=== PATIENT | female | born 1965 | race Caucasian/White ===

== ENCOUNTER → 2017-01-18 | Outpatient (CLI) | payer MEDICARE, MEDICAID ==
[~2017-01-18] MED LIST: ACET-2267 PO; ASP325T PO; ASP81TEC PO; CLOP75TA PO; ENAL5TAB PO; HYDR-3812 PO; HYDR-757 PO; MTP50T PO; MULT1CAP27 PO; NITR0.4T12 SL; OMEG-12 PO; OMG1KC PO; RANO10003 PO; ROSU5TAB PO; hydrocodone PO; tylenol es PO
== END ==
LOC: CARD 13:26
PROVIDERS: ATTEND Internal Medicine Cardiovascular Disease
DX: I25.10 Atherosclerotic heart disease of native coronary artery without angina pectoris (principal); I10 Essential (primary) hypertension; E78.2 Mixed hyperlipidemia; Z72.0 Tobacco use
CPT/HCPCS: 93306

== ENCOUNTER → 2017-01-21 | Outpatient (CLI) | payer MEDICARE, MEDICAID ==
[~2017-01-21] MED LIST changes: +CATHETER FLUSH 10 ML SYR IV PRN; +REGADENOSON 0.4 MG/5 ML SYR (LEXISCAN) IV ONE
[2017-01-21 09:53] VITALS: BP 107/58
[2017-01-21 09:55] VITALS: BP 122/61
[2017-01-21 09:57] VITALS: BP 109/59
--- NOTE | 2017-01-22 00:52 | STRESS TEST ---
DATE OF SERVICE: 01/21/2017 LEXISCAN MYOVIEW STRESS TEST REPORT Baseline heart rate is 73. Baseline blood pressure 108/65. Baseline EKG is sinus rhythm with no ischemic changes. SUMMARY: The patient was injected with 10.99 mCi of technetium-99 Myoview and the resting images were obtained. Then, the patient received 0.4 mg of Lexiscan followed by 30.0 mCi of technetium-99 Myoview. Throughout the test, there were no EKG changes. The resting and stress images were reviewed and compared in the horizontal long axis, vertical long axis and short axis views. Review of the images showed mild decreased uptake at basal to mid anterior septum with subtle reversibility. SSS is 7. SDS 5. TID value 1.23. On the gaited images, the left ventricle appeared to be in normal size with normal contractility. Calculated ejection fraction 67%. CONCLUSION: 1. The patient tolerated Lexiscan well. 2. Breast attenuation with mild decreased uptake at the basal to mid anterior septum with subtle reversibility. 3. Transient ischemic dilatation with TID value 1.23. 4. Normal left ventricular size with normal contractility. Calculated ejection fraction 67%. Job ID: [id number] DocumentID: [id number] Dictated Date: 01/21/2017 17:48:58 Hoist Mechanic Date: 01/21/2017 19:28:59 Dictated By: KHADIJAH FISHER MD
== END ==
LOC: CARD 07:26
PROVIDERS: ATTEND Internal Medicine Cardiovascular Disease
DX: I25.10 Atherosclerotic heart disease of native coronary artery without angina pectoris (principal); I10 Essential (primary) hypertension; E78.2 Mixed hyperlipidemia; Z72.0 Tobacco use
CPT/HCPCS: 78452; 93017

== ENCOUNTER 2017-01-25 06:37 | Day surgery (SDC) | payer MEDICARE, MEDICAID ==
[2017-01-25] VITALS (11 sets, daily range): BP systolic 90–117; BP diastolic 52–80
[~2017-01-25] VITALS: Ht 154.9 cm; Wt 51.7 kg
[~2017-01-25 06:37] MED LIST changes: -CATHETER FLUSH 10 ML SYR IV PRN; -REGADENOSON 0.4 MG/5 ML SYR (LEXISCAN) IV ONE
[2017-01-25] MEDS ORDERED: LIDOCAINE 1% INJ 50 ML (XYLOCAINE) VIAL ONE (06:46)
[2017-01-25] MEDS ORDERED: NS IV 1000 ML 1,000 ML ONE (06:46)
[2017-01-25] MEDS ORDERED: HEParin (CATH LAB) 2,000 ML IV ONE (06:46)
[2017-01-25] MEDS ORDERED: NS IV 1000 ML 1,000 ML IV SCH ×3 (06:52→10:34)
[2017-01-25 07:09] LABS: BILIRUBIN,URINE NEGATIVE (NEGATIVE); KETONES,URINE NEGATIVE (NEGATIVE); LEUKOCYTE ESTERASE ,URINE 1+ (NEGATIVE); NITRITE,URINE NEGATIVE (NEGATIVE); PH,URINE 6 (5-9); PROTEIN,URINE NEGATIVE (NEGATIVE); UROBILINOGEN,URINE NORMAL (NORMAL)
[2017-01-25 07:10] LABS: MEAN PLATELET VOLUME 8.8 FL (7.4-10.4); RED BLOOD COUNT 4.14 10^6/uL (4.35-5.85); RED CELL DISTRIBUTION WIDTH 12.5 % (10.0-14.5); WHITE BLOOD COUNT 7.4 10^3/uL (4.3-11.0)
[2017-01-25 07:19] LABS: INR 0.9 (0.8-1.4); PROTHROMBIN TIME PATIENT 12.5 SEC (12.2-14.7)
[2017-01-25] MEDS ORDERED: METF500T8 PO (07:22)
[2017-01-25] MEDS ORDERED: TRAZ-28 PO (07:22)
[2017-01-25] MEDS ORDERED: CLON0.5T3 PO (07:22)
[2017-01-25 07:30] LABS: WBC,URINE 0-2 /HPF
[2017-01-25] MEDS ORDERED: INFLUENZA TRIvalent 2017-2018 0.5 ML/45 MCG SYR IM ONE (07:30)
--- NOTE | 2017-01-25 07:31 | Diagnostic Imaging Report ---
INDICATION: Pre-heart catheterization, possible coronary artery angioplasty and stent. COMPARISON STUDY: Chest from 01/26/2015. FINDINGS: Portable upright view of the chest demonstrates previous coronary artery bypass graft changes. Heart size and vascularity are normal. Lungs are clear. There are no pleural effusions. IMPRESSION: There are no acute findings. Dictated by: Dictated on workstation # [id number]
[2017-01-25 07:33] LABS: BILIRUBIN,TOTAL 0.3 MG/DL (0.1-1.0); CALCIUM 9.7 MG/DL (8.5-10.1); CREATININE SERUM 1.15 MG/DL (0.60-1.30); POTASSIUM 3.9 MMOL/L (3.6-5.0); TOTAL PROTEIN 6.8 GM/DL (6.4-8.2)
[2017-01-25] MEDS ORDERED: MIDAZOLAM 5 MG/5 ML (VERSED) VIAL ONE (09:59)
[2017-01-25] MEDS ORDERED: fentaNYL INJECTION 100 MCG/2 ML AMP ONE (10:00)
--- NOTE | 2017-01-25 10:01 | Cardiac Procedure Note-CS/ASA ---
Pre-Procedure Note Pre-Op Procedure Note H&P Reviewed The H&P was reviewed, patient examined and no changes noted. Date H&P Reviewed: Jan 25, 2017 Time H&P Reviewed: 10:00 Conscious Sedation Pre-Proced Time Reviewed: 10:00 ASA Class: 3 Airway Mallampati Classification: (port gamble appropriate class) I. II. III, IV Lungs Heart ASA score ASA 1: a normal healthy patient ASA 2: a patient with a mild systemic disease (mid diabetes, controlled hypertension, obesity x ASA 3: a patient with a severe systemic disease that limits activity (angina , COPD, prior Myocardial infarction) ASA 4: a patient with an incapacitating disease that is a constant threat to life (CHF, renal failure) ASA 5: a moribund patient not expected to survive 24 hrs. (ruptured aneurysm) ASA 6: a declared brain patient whose organs are being harvested. For emergent operations, add the letter E after the classification Grade 3 Sedation Plan: Analgesia, Amnesia, Plan communicated to team members, Discussed options with patient/fam, Discussed risks with patient/fam Note The patient is an appropriate candidate to undergo the planned procedure, sedation, and anesthesia. The patient immediately re-assessed prior to indication. KHADIJAH FISHER MD Jan 25, 2017 10:01
--- NOTE | 2017-01-25 10:35 | Discharge Inst-Post CATH ---
Discharge Inst-CATH Post Cardiac Cath D/C Inst Follow Up/Plan Appointment with Dr. Townsend's office in 2-4 weeks CARDIAC CATH DISCHARGE INSTRUCTIONS *Hold Metformin for 48 hours post heart cath. ACTIVITY * Go Home directly and rest. * Limit activity of the leg (or wrist if it was used) for 7 days including aerobics, swimming, jogging, bicycling, etc. * Restrict stair-climbing for 7 days if possible, if not, climb up with your non -cath leg, then bring together on the same step. * Avoid lifting, pushing, pulling or excessive movement of the affected extremity for 7 days. * Customary sexual activity may be resumed after 2 days-use caution not to use a position that strains or causes pain to the affected extremity. * No driving for 24 hours. * NO SMOKING. * Avoid straining for bowel movements for 7 days. * Gentle walking on level ground is allowed. * Returning to work will depend on the type of procedure and the results. Your doctor will discuss this with you. CALL YOUR DOCTOR FOR ANY OF THE FOLLOWING: *If bleeding from the puncture site occurs- Apply gentle pressure to site with clean cloth and call your doctor or EMS. * If a knot or lump forms under the skin, increases in size, or causes pain. * If bruising appears to be worsening or moving further down your leg instead of disappearing. * Temperature above 101 F. CARE OF YOUR GROIN INCISION; * Bruising or purple discoloration of the skin near the puncture site is common. * You may shower only, no bathtub bathing for 5 days. Be careful to avoid slipping as your leg may feel stiff. * If a closure device was used on your femoral artery, please see the attached guide regarding care of the device and your leg. * REMOVE the dressing from your groin the next day after your procedure in the shower. CARE OF YOUR WRIST INCISION; * Bruising or purple discoloration of the skin near the puncture site is common. * You may shower. * DO NOT submerge wrist. * Remove dressing in 24 hours. KHADIJAH TOWNSEND MD Jan 25, 2017 10:35
--- NOTE | 2017-01-25 10:39 | Cardiac Cath Report ---
Cardiac Cath Report Physician (s)/Expressive Music Therapist (s) Physician KHADIJAH FISHER MD Pre-Procedure Diagnosis Pre-Procedure Diagnosis: Coronary artery disease Post-Procedure Note Procedure Start Date: Jan 25, 2017 Name of Procedure: Left heart catheter, left ventricular gram, vein graft angiogram. [id number] Findings/Procedure Note PROCEDURE NOTE: After explaining the procedure to the patient, all pros and cons were explained, all questions were answered. The patient signed the consent and then she was placed on the cardiac catheterization laboratory. The patient was placed on the cardiac catheterization laboratory. Groin was prepped SL fashion local anesthesia was used. Sheath placed in the right femoral artery. Rishabh right and left catheter were used to access the coronary system. Vein Graft evaluated. Rishabh right was prolapsed to the left ventricular cavity and left ventriculogram was done Pullback LV to aorta was done At the end of the procedure the sheath was removed. Closure device was not used FINDINGS: Hemodynamics LV 105/11 end-diastolic pressure of 11 Aorta 102/52 mean of 74 ANATOMY: Left Main free of obstructive disease Left Anterior Descending as a patent stent proximally small vessel disease distally Left Circumflex is moderate in size with mild disease Right Coronory Artery is totally occluded with patent vein graft to the right PDA BENOIT is known to be occluded Vein Graft to the right posterior descending artery is patent with excellent flow distally, small vessel disease LV Gram was done, normal left ventricular size with systolic function estimated ejection fraction 60 percent CONCLUSION: 1. Patent vein graft to the right PDA with good flow distally 2. Known occluded BENOIT to LAD 3. Patent stent in the proximal LAD with small vessel disease in the distal LAD and circumflex artery 4. Normal left ventricular size and systolic function estimated ejection fraction 60 percent DISCUSSION AND RECOMMENDATION: Continue to maximize medical therapy Anesthesia Type: Conscious Sedation Estimated blood loss (mL): 10 ml Contrast Amount: 38 ml Total Radiation Dose: 113 mGy Post-Procedure Diagnosis Post-operative diagnosis: Chest pain nonspecific etiology Coronary artery disease Hypertension Hyperlipidemia KHADIJAH FISHER MD Jan 25, 2017 10:39
[2017-01-25] MEDS ORDERED: PATIENT MAY USE OWN MEDS, ALL PO SCH (10:45)
== END 2017-01-25 14:54 | disposition home or self-care (01) ==
LOC: CATH 06:37 → SURG 11:05 → CATH 14:54
PROVIDERS: ATTEND Internal Medicine Cardiovascular Disease
DX: I25.10 Atherosclerotic heart disease of native coronary artery without angina pectoris (principal); I10 Essential (primary) hypertension; E78.5 Hyperlipidemia, unspecified; I65.23 Occlusion and stenosis of bilateral carotid arteries; K21.9 Gastro-esophageal reflux disease without esophagitis; F17.210 Nicotine dependence, cigarettes, uncomplicated; Z79.899 Other long term (current) drug therapy; Z88.8 Allergy status to other drugs, medicaments and biological substances
CPT/HCPCS: 36415; 71010; 80053; 80061; 81000; 85027; 85610; 85730; 87081; 93459

== ENCOUNTER → 2018-10-29 | Outpatient (CLI) | payer MEDICARE, MEDICAID ==
[~2018-10-29] MED LIST changes: +ACHD5005 PO; +CLON0.5T13 PO; -HYDR-3812 PO; +HYDR-4226 PO; -HYDR-757 PO; +METF500T8 PO; +TRAZ-222 PO
== END ==
LOC: PREOP 05:39
PROVIDERS: ATTEND Surgery
DX: Z01.818 Encounter for other preprocedural examination (principal); R10.13 Epigastric pain

== ENCOUNTER → 2018-12-02 | Outpatient (CLI) | payer MEDICARE, MEDICAID | END | disposition home or self-care (01) | LOC: PREOP 05:50 | PROVIDERS: ATTEND Surgery | DX: Z01.818 Encounter for other preprocedural examination (principal) ==

== ENCOUNTER → 2019-04-20 | Outpatient (CLI) | payer MEDICARE, MEDICAID ==
[~2019-04-20] MED LIST changes: -CLON0.5T13 PO; +CLON0.5T4 PO; +METF500T19 PO; -METF500T8 PO; -TRAZ-222 PO; +TRZ50T PO
[2019-04-20 11:25] LABS: CHOLESTEROL 149 MG/DL (< 200); HDL CHOLESTEROL 81 MG/DL (40-60); TRIGLYCERIDES 99 MG/DL (<150); VLDL CHOLESTEROL 20 MG/DL (5-40)
[2019-04-20 17:11] LABS: ALBUMIN 4.1 GM/DL (3.2-4.5); BILIRUBIN,TOTAL 0.5 MG/DL (0.1-1.0); CALCIUM 9.5 MG/DL (8.5-10.1); CREATININE SERUM 1.27 MG/DL (0.60-1.30); POTASSIUM 4.4 MMOL/L (3.6-5.0); TOTAL PROTEIN 6.6 GM/DL (6.4-8.2)
== END ==
LOC: CARD 10:50
PROVIDERS: ATTEND Internal Medicine Cardiovascular Disease
DX: I25.10 Atherosclerotic heart disease of native coronary artery without angina pectoris (principal); I10 Essential (primary) hypertension; I65.29 Occlusion and stenosis of unspecified carotid artery; K21.9 Gastro-esophageal reflux disease without esophagitis
CPT/HCPCS: 36415; 80053; 80061; 93306

== ENCOUNTER → 2020-03-23 | Outpatient (CLI) | payer MEDICARE, MEDICAID ==
[~2020-03-23] MED LIST changes: +METF-865 PO; -METF500T19 PO
[2020-03-23 12:09] LABS: BASOPHILS % (AUTO) 0 % (0-10); EOSINOPHILS % (AUTO) 1 % (0-10); HEMATOCRIT 38 % (35-52); HEMOGLOBIN 13.3 g/dL (11.5-16.0); LYMPHOCYTES # (AUTO) 1.6 10^3/uL (1.0-4.0); LYMPHOCYTES % (AUTO) 32 % (12-44); MEAN CORPUSCULAR HEMOGLOBIN 33 pg (25-34); MEAN CORPUSCULAR HGB CONC 35 g/dL (32-36); MEAN CORPUSCULAR VOLUME 94 fL (80-99); MEAN PLATELET VOLUME 8.4 fL (9.0-12.2); MONOCYTES # (AUTO) 0.5 10^3/uL (0.0-1.0); MONOCYTES % (AUTO) 9 % (0-12); NEUTROPHILS # (AUTO) 2.9 10^3/uL (1.8-7.8); NEUTROPHILS % (AUTO) 57 % (42-75); PLATELET COUNT 296 10^3/uL (130-400)
[2020-03-23 12:32] LABS: ALBUMIN 3.9 GM/DL (3.2-4.5); CREATININE SERUM 1.16 MG/DL (0.60-1.30); PHOSPHORUS 3.1 MG/DL (2.3-4.7); POTASSIUM 4.4 MMOL/L (3.6-5.0); URIC ACID 3.1 MG/DL (2.6-7.2)
[2020-03-23 12:36] LABS: URINE CREATININE FOR RATIO 36 MG/DL (30-125)
[2020-03-23 12:37] LABS: URINE PROTEIN FOR RATIO ONLY < 6 MG/DL (6-12)
== END ==
LOC: LAB 11:31
PROVIDERS: ATTEND Internal Medicine Nephrology
DX: I12.9 Hypertensive chronic kidney disease with stage 1 through stage 4 chronic kidney disease, or unspecified chronic kidney disease (principal); N18.30 Chronic kidney disease, stage 3 unspecified; I25.10 Atherosclerotic heart disease of native coronary artery without angina pectoris; F17.210 Nicotine dependence, cigarettes, uncomplicated
CPT/HCPCS: 36415; 80069; 82306; 82570; 83970; 84156; 84550; 85025

== ENCOUNTER → 2020-04-14 | Outpatient (CLI) | payer MEDICARE, MEDICAID ==
--- NOTE | 2020-04-14 15:32 | Diagnostic Imaging Report ---
PROCEDURE: US Renal Bilateral. TECHNIQUE: Multiple real-time grayscale images were obtained over the kidneys in various projections bilaterally. INDICATION: Chronic kidney disease. Right kidney measures 8.9 x 3.2 x 4.4 cm, the left kidney measures 9.4 x 5.1 x 4.3 cm. Cortical thickness and echogenicity is normal. No calculi are seen. There is no hydronephrosis. Images of the bladder are unremarkable. Bilateral ureteral jets were visualized. IMPRESSION: Unremarkable renal ultrasound. Dictated by: Dictated on workstation # [id number]
== END ==
LOC: RAD 13:00
PROVIDERS: ATTEND Internal Medicine Nephrology
DX: I12.9 Hypertensive chronic kidney disease with stage 1 through stage 4 chronic kidney disease, or unspecified chronic kidney disease (principal); N18.31 Chronic kidney disease, stage 3a; I25.10 Atherosclerotic heart disease of native coronary artery without angina pectoris
CPT/HCPCS: 76770

== ENCOUNTER → 2020-10-10 | Outpatient (CLI) | payer MEDICARE, MEDICAID ==
[~2020-10-10] MED LIST changes: +RT-ALBUTEROL SULF 2.5 MG/3 ML PRE-MIX VIAL INH ONE
== END ==
LOC: CARD 12:00
PROVIDERS: ATTEND Nurse Practitioner Family
DX: I34.0 Nonrheumatic mitral (valve) insufficiency (principal); I25.709 Atherosclerosis of coronary artery bypass graft(s), unspecified, with unspecified angina pectoris
CPT/HCPCS: 93306; 94060; 94726; 94729

== ENCOUNTER 2020-10-27 17:51 | Emergency (ER) | payer MEDICARE, MEDICAID ==
[~2020-10-27] VITALS: Ht 152.4 cm; Wt 56.6 kg
[~2020-10-27 17:51] MED LIST changes: -RT-ALBUTEROL SULF 2.5 MG/3 ML PRE-MIX VIAL INH ONE
--- NOTE | 2020-10-27 18:23 | ED Lower Extremity ---
General Stated Complaint: POST OP, BLEEDING FROM GROIN Source: patient Exam Limitations: no limitations History of Present Illness Date Seen by Provider: Oct 27, 2020 Time Seen by Provider: 18:19 Initial Comments To ER by private vehicle with reports of a bleeding wound to the right groin. She had a cardiac catheterization done at [facility] yesterday by Dr. Fofana (sp?) with coronary stenting. Access was via the right groin. She states that it had soaked 2 gauze pads in about an hour so she decided to come out here to the emergency room. Onset: just prior to arrival Severity: moderate Pain/Injury Location: right leg Allergies and Home Medications Allergies Coded Allergies: duloxetine (Unverified Allergy, Mild, NAUSEA, 08/12/13) isosorbide (Unverified Allergy, Unknown, 08/12/13) Patient Home Medication List Home Medication List Reviewed: Yes Aspirin (Aspirin Ec 81 Mg) 81 Mg Tabec, 81 MG PO DAILY, (Reported) Entered as Reported by: DAKOTA CANNON on 08/12/13 0919 Clonazepam (Clonazepam) 0.5 Mg Tablet, 0.5 MG PO BID PRN for ANXIETY, (Reported) Entered as Reported by: KATIE COLBERT on 01/25/17 0722 Clopidogrel Bisulfate (Plavix 75 Mg) 75 Mg Tablet, 75 MG PO DAILY, (Reported) Entered as Reported by: MARTÍN HUMMEL on 01/11/12 1348 Enalapril Maleate (Enalapril Maleate) 5 Mg Tablet, 5 MG PO DAILY, (Reported) Entered as Reported by: MARTÍN HUMMEL on 01/11/12 1348 Metformin HCl (Metformin HCl ER) 500 Mg Tab.er.24h, 500 MG PO DAILY, (Reported) Entered as Reported by: KATIE COLBERT on 01/25/17 0722 Metoprolol Tartrate (Metoprolol Tartrate 50 Mg) 50 Mg Tablet, 50 MG PO BID, (Reported) Entered as Reported by: MARTÍN HUMMEL on 01/11/12 1348 Multivitamins (Multivitamins) 1 Each Capsule, 1 EACH PO DAILY, (Reported) Entered as Reported by: MARTÍN HUMMEL on 01/11/12 1348 Nitroglycerin (Nitroquick) 0.4 Mg Tab.subl, 0.4 MG SL PRN, (Reported) Entered as Reported by: MARTÍN HUMMEL on 01/11/12 1348 [place] 3 Polyunsat Fatty Acids (Fish Oil) 1,000 Mg Cap, 1,000 MG PO TID, (Reported) Entered as Reported by: DAKOTA CANNON on 08/12/13 0919 Ranolazine (Ranexa ER 1000mg) 1,000 Mg Tab.sr.12h, 1,000 MG PO BID, (Reported) Entered as Reported by: MARTÍN HUMMEL on 01/11/12 1348 Rosuvastatin Calcium (Crestor) 5 Mg Tablet, 5 MG PO HS, (Reported) Entered as Reported by: MARTÍN HUMMEL on 01/11/12 1348 Trazodone HCl (Trazodone HCl) 50 Mg Tablet, 50 MG PO HS, (Reported) Entered as Reported by: KATIE COLBERT on 01/25/17 0722 Review of Systems Constitutional: see HPI EENTM: see HPI Respiratory: no symptoms reported Cardiovascular: no symptoms reported Genitourinary: no symptoms reported Musculoskeletal: no symptoms reported Skin: no symptoms reported Psychiatric/Neurological: No Symptoms Reported Past [id number]-[id number] Hx Past Medical History Adenoidectomy, Appendectomy, CABG, Hysterectomy, Orthopedic, Tonsillectomy Heart Attack, High Cholesterol WIRE TWISTER History: Hysterectomy Gastroesophageal Reflux Family Medical History No Pertinent Family Hx Physical Exam Vital Signs Vital Signs - First Documented 10/27/20 18:15 Temp 36.3 Pulse 82 Resp 16 B/P (MAP) 125/68 (87) Pulse Ox 97 O2 Delivery Room Air Capillary Refill : Height, Weight, BMI Height: 5'1.00" Weight: 114lbs. 0.0oz. [id number]; 21.5 BMI Method: General Appearance: WD/WN, no apparent distress HEENT: PERRL/EOMI, normal ENT inspection Respiratory: no respiratory distress, no accessory muscle use Hips: bilateral hip non-tender, bilateral hip normal inspection, bilateral hip normal range of motion; right hip other (To the right groin is a puncture wound from cardiac catheterization. There is no oozing at all, no surrounding erythema and no ecchymosis at all. There is no nodule or thrill to suggest a pseudoaneurysm developed. She has a strong posterior tibial pulse.) Legs: bilateral leg non-tender, bilateral leg normal inspection, bilateral leg normal range of motion Knees: bilateral knee non-tender, bilateral knee normal inspection, bilateral knee normal range of motion Ankles: bilateral ankle non-tender, bilateral ankle normal inspection, bilateral ankle normal range of motion Feet: bilateral foot non-tender Neurologic/Psychiatric: no motor/sensory deficits, alert, normal mood/affect, oriented x 3 Skin: normal color, warm/dry Progress/Results/Core Measures Results/Orders Vital Signs/I&O 10/27/20 18:15 Temp 36.3 Pulse 82 Resp 16 B/P (MAP) 125/68 (87) Pulse Ox 97 O2 Delivery Room Air Departure Communication (Admissions) 1909-No bleeding from groin site, no pain, no palpable hematoma or thrill. Impression Primary Impression: Visit for wound care Disposition: 01 HOME, SELF-CARE Condition: Stable Departure-Patient Inst. Decision time for Depature: 18:23 Referrals: [facility] (PCP) Primary Care Physician EVERETTE ZIMMERMAN APRN (Family) Primary Care Physician Patient Instructions: Wound Care (DC) Add. Discharge Instructions: If it begins bleeding again then simply apply pressure. Return to ER for any concerns. Follow-up with cardiology as scheduled. SHAYNA BARILLAS APRN Oct 27, 2020 18:23
[2020-10-27 19:01] VITALS: BP 118/71
== END 2020-10-27 19:04 | disposition home or self-care (01) ==
LOC: EDUNIT# 17:51 → ER 17:53
DX: Z48.01 Encounter for change or removal of surgical wound dressing (principal); I25.2 Old myocardial infarction; E78.00 Pure hypercholesterolemia, unspecified; Z90.710 Acquired absence of both cervix and uterus; Z79.82 Long term (current) use of aspirin; Z79.01 Long term (current) use of anticoagulants; Z79.899 Other long term (current) drug therapy
CPT/HCPCS: 99281

== ENCOUNTER → 2021-05-15 | Outpatient (CLI) | payer MEDICARE, MEDICAID ==
[2021-05-15 12:13] LABS: POTASSIUM 4.6 MMOL/L (3.6-5.0)
[2021-05-15 12:15] LABS: CALCIUM 9.6 MG/DL (8.5-10.1)
[2021-05-15 12:19] LABS: CREATININE SERUM 1.07 MG/DL (0.60-1.30); PHOSPHORUS 3.6 MG/DL (2.3-4.7)
== END ==
LOC: LAB 11:44
PROVIDERS: ATTEND Internal Medicine Nephrology
DX: N18.31 Chronic kidney disease, stage 3a (principal)
CPT/HCPCS: 36415; 80069

== ENCOUNTER → 2021-05-26 | Outpatient (CLI) | payer MEDICARE, MEDICAID ==
[2021-05-26 11:12] LABS: ALBUMIN 4.3 GM/DL (3.2-4.5); CALCIUM 9.8 MG/DL (8.5-10.1); CREATININE SERUM 1.08 MG/DL (0.60-1.30); PHOSPHORUS 3.2 MG/DL (2.3-4.7); POTASSIUM 4.8 MMOL/L (3.6-5.0)
== END ==
LOC: LAB 10:36
PROVIDERS: ATTEND Internal Medicine Nephrology
DX: I12.9 Hypertensive chronic kidney disease with stage 1 through stage 4 chronic kidney disease, or unspecified chronic kidney disease (principal); N18.31 Chronic kidney disease, stage 3a; I25.10 Atherosclerotic heart disease of native coronary artery without angina pectoris; E87.1 Hypo-osmolality and hyponatremia
CPT/HCPCS: 36415; 80069

== ENCOUNTER → 2021-12-04 | Outpatient (CLI) | payer MEDICARE, MEDICAID ==
[2021-12-04 10:35] LABS: BASOPHILS % (AUTO) 0 % (0-10); EOSINOPHILS % (AUTO) 1 % (0-10); HEMATOCRIT 38 % (35-52); HEMOGLOBIN 13.1 g/dL (11.5-16.0); LYMPHOCYTES # (AUTO) 1.5 10^3/uL (1.0-4.0); LYMPHOCYTES % (AUTO) 29 % (12-44); MEAN CORPUSCULAR HEMOGLOBIN 33 pg (25-34); MEAN CORPUSCULAR HGB CONC 35 g/dL (32-36); MEAN CORPUSCULAR VOLUME 94 fL (80-99); MEAN PLATELET VOLUME 8.5 fL (9.0-12.2); MONOCYTES # (AUTO) 0.4 10^3/uL (0.0-1.0); MONOCYTES % (AUTO) 8 % (0-12); NEUTROPHILS # (AUTO) 3.3 10^3/uL (1.8-7.8); NEUTROPHILS % (AUTO) 62 % (42-75); PLATELET COUNT 302 10^3/uL (130-400); WHITE BLOOD COUNT 5.3 10^3/uL (4.3-11.0)
[2021-12-04 10:49] LABS: ALBUMIN 4.1 GM/DL (3.2-4.5); POTASSIUM 4.6 MMOL/L (3.6-5.0)
[2021-12-04 10:50] LABS: CALCIUM 9.4 MG/DL (8.5-10.1)
[2021-12-04 10:51] LABS: TOTAL PROTEIN 6.8 GM/DL (6.4-8.2)
[2021-12-04 10:53] LABS: BILIRUBIN,TOTAL 0.5 MG/DL (0.1-1.0)
[2021-12-04 10:55] LABS: CREATININE SERUM 1.2 MG/DL (0.60-1.30)
== END ==
LOC: LAB 10:17
PROVIDERS: ATTEND Nurse Practitioner
DX: I10 Essential (primary) hypertension (principal); E78.2 Mixed hyperlipidemia; K21.9 Gastro-esophageal reflux disease without esophagitis; J44.9 Chronic obstructive pulmonary disease, unspecified; F17.200 Nicotine dependence, unspecified, uncomplicated
CPT/HCPCS: 36415; 80053; 80061; 85025

== ENCOUNTER → 2021-12-11 | Outpatient (CLI) | payer MEDICARE, MEDICAID | LOC: CARD 08:27 | PROVIDERS: ATTEND Internal Medicine Cardiovascular Disease | DX: I34.0 Nonrheumatic mitral (valve) insufficiency (principal); I10 Essential (primary) hypertension | CPT/HCPCS: 93306 ==

== ENCOUNTER → 2022-02-27 | Outpatient (CLI) | payer MEDICARE, MEDICAID ==
[2022-02-27 10:49] LABS: ALBUMIN 4.1 GM/DL (3.2-4.5); POTASSIUM 4.4 MMOL/L (3.6-5.0)
[2022-02-27 10:50] LABS: CALCIUM 9.6 MG/DL (8.5-10.1)
[2022-02-27 10:51] LABS: TOTAL PROTEIN 6.7 GM/DL (6.4-8.2)
[2022-02-27 10:53] LABS: BILIRUBIN,TOTAL 0.4 MG/DL (0.1-1.0)
[2022-02-27 10:55] LABS: CREATININE SERUM 1.09 MG/DL (0.60-1.30)
== END ==
LOC: LAB 10:09
PROVIDERS: ATTEND Internal Medicine Cardiovascular Disease
DX: E78.2 Mixed hyperlipidemia (principal); I70.90 Unspecified atherosclerosis; I65.29 Occlusion and stenosis of unspecified carotid artery; I25.10 Atherosclerotic heart disease of native coronary artery without angina pectoris
CPT/HCPCS: 36415; 80053; 80061

== ENCOUNTER → 2022-06-07 | Outpatient (CLI) | payer MEDICARE, MEDICAID ==
[2022-06-07 13:26] LABS: BASOPHILS % (AUTO) 1 % (0-10); EOSINOPHILS % (AUTO) 0 % (0-10); HEMATOCRIT 34 % (35-52); HEMOGLOBIN 11.9 g/dL (11.5-16.0); LYMPHOCYTES # (AUTO) 1.7 10^3/uL (1.0-4.0); LYMPHOCYTES % (AUTO) 31 % (12-44); MEAN CORPUSCULAR HEMOGLOBIN 33 pg (25-34); MEAN CORPUSCULAR HGB CONC 35 g/dL (32-36); MEAN CORPUSCULAR VOLUME 96 fL (80-99); MEAN PLATELET VOLUME 8.7 fL (9.0-12.2); MONOCYTES # (AUTO) 0.4 10^3/uL (0.0-1.0); MONOCYTES % (AUTO) 8 % (0-12); NEUTROPHILS # (AUTO) 3.3 10^3/uL (1.8-7.8); NEUTROPHILS % (AUTO) 60 % (42-75); PLATELET COUNT 264 10^3/uL (130-400); WHITE BLOOD COUNT 5.5 10^3/uL (4.3-11.0)
[2022-06-07 13:36] LABS: ALBUMIN 4.1 GM/DL (3.2-4.5)
[2022-06-07 13:37] LABS: POTASSIUM 3.7 MMOL/L (3.6-5.0)
[2022-06-07 13:38] LABS: CALCIUM 9.5 MG/DL (8.5-10.1)
[2022-06-07 13:39] LABS: URINE CREATININE FOR RATIO 44 MG/DL (30-125)
[2022-06-07 13:40] LABS: URINE PROTEIN FOR RATIO ONLY < 6 MG/DL (6-12)
[2022-06-07 13:42] LABS: PHOSPHORUS 3.5 MG/DL (2.3-4.7)
[2022-06-07 13:43] LABS: CREATININE SERUM 1.18 MG/DL (0.60-1.30)
[2022-06-07 13:45] LABS: URIC ACID 3.5 MG/DL (2.6-7.2)
== END ==
LOC: LAB 13:02
PROVIDERS: ATTEND Internal Medicine Nephrology
DX: I12.9 Hypertensive chronic kidney disease with stage 1 through stage 4 chronic kidney disease, or unspecified chronic kidney disease (principal); N18.31 Chronic kidney disease, stage 3a; I25.10 Atherosclerotic heart disease of native coronary artery without angina pectoris; E87.1 Hypo-osmolality and hyponatremia
CPT/HCPCS: 36415; 80069; 82306; 82570; 83970; 84156; 84550; 85025